=== PATIENT | male | born 1935 | race Caucasian/White ===

== ENCOUNTER 2017-03-14 00:05 | Emergency (ER) | payer OTHER, BC ==
[~2017-03-14] VITALS: Ht 170.2 cm; Wt 81.4 kg
[~2017-03-14 00:05] MED LIST: AMITRIPTYLINE H25 MG PO; ANTIBIOTIC; FLOMAX0.4 MG PO; HYDROCODON-ACE1 EAC7 PO; HYDROCODON-ACE1 EAC9 PO; HYDROCODONE-AP1 EA15 PO; KEFLEX500 MG PO; MOTRIN800 MG PO; OMNICEF50 MG/1 ML PO; OXAYDO5 MG PO; PERCOCET 5/31 TABLET PO; RAPAFLO4 MG PO; RAPAFLO8 MG PO; STOOL SOFTENER100 M1 PO; SYNTHROID125 MCG PO; SYNTHROID25 MCG PO; TOVIAZ4 MG PO; TRAZODONE HCL50 MG PO; VYTORIN 10-201 EACH PO
[2017-03-14 02:12] LABS: MCH 29.4 PG (29.0-34.0); MCHC 31.6 G/DL (30.0-36.0); MCV 92.9 FL (86-99); MEAN PLAT.VOLUME 10.6 uM^3 (9.0-12.4); PLATELET COUNT 392 K/uL (156-360); RBC DIS.WIDTH-CV 13.5 % (11.8-14.6); RBC DIS.WIDTH-SD 45.9 % (39-53); RED BLOOD COUNT 4.63 M/uL (4.00-5.50); WHITE BLOOD COUNT 7.8 K/uL (4.1-10.2)
[2017-03-14 02:20] LABS: CHLORIDE 108 mEq/L (99-109); POTASSIUM 4.2 mEq/L (3.7-5.4); SODIUM 142 mEq/L (136-147)
[2017-03-14 02:22] LABS: GLUCOSE 109 mg/dL (70-99)
[2017-03-14 02:24] LABS: ANION GAP 6 MEQ/L (2-14); TOTAL BILIRUBIN 0.5 mg/dL (0.0-1.0)
[2017-03-14 02:26] LABS: ALKALINE PHOSPHATASE 62 IU/L (3-129); GFR ESTIMATE (CALCULATED) > 59 mL/min/
[2017-03-14 02:27] LABS: UREA NITROGEN (BUN) 23 mg/dL (9-23)
[2017-03-14 02:36] LABS: ADD MIUA? NO; BILIRUBIN NEGATIVE; BLOOD NEGATIVE; COLOR YELLOW ((YELLOW)); GLUCOSE (STRIP) NEGATIVE; KETONES NEGATIVE; LEUKOCYTES NEGATIVE; NITRITE NEGATIVE; PROTEIN (STRIP) NEGATIVE; SPECIFIC GRAVITY 1.016 (1.000-1.030); UCUL ADDED? NO; UROBILINOGEN 0.2 MG/DL (0.2-1.0)
[2017-03-14 03:45] VITALS: BP 148/78
== END 2017-03-14 03:46 | disposition home or self-care (01) ==
LOC: EME 00:05 → EXP 00:05
PROVIDERS: Physician Assistant
DX: G89.29 Other chronic pain (principal); M54.9 Dorsalgia, unspecified; M62.830 Muscle spasm of back; Z87.891 Personal history of nicotine dependence
CPT/HCPCS: 71275; 80053; 81003; 85027; 99281; 99284; J3010

== ENCOUNTER 2017-05-03 20:53 | Emergency (ER) | payer OTHER, BC ==
[~2017-05-03] VITALS: Ht 170.2 cm; Wt 82.0 kg
[2017-05-03 21:43] LABS: EOSINOPHIL (%) 0.3 % (0-5); HEMATOCRIT 39.6 % (38.0-50.0); IMMATURE GRANULOCYTE (%) 0.8 % (0.0-0.7); IMMATURE GRANULOCYTE COUNT 0.1 K/uL; INSTRUMENT ABS NEUTROPHIL CT 9.8 K/uL; LYMPHOCYTE COUNT 1.1 K/uL (1.0-2.8); MCHC 32.8 G/DL (30.0-36.0); MCV 91.5 FL (86-99); MEAN PLAT.VOLUME 10.6 uM^3 (9.0-12.4); MONOCYTE (%) 6.3 % (3-12); MONOCYTE COUNT 0.8 K/uL (0-0.8); NEUTROPHIL COUNT 9.8 K/uL (1.8-6.4); PLATELET COUNT 451 K/uL (156-360); RBC DIS.WIDTH-CV 13.5 % (11.8-14.6); RBC DIS.WIDTH-SD 45.7 % (39-53); RED BLOOD COUNT 4.33 M/uL (4.00-5.50); WHITE BLOOD COUNT 11.9 K/uL (4.1-10.2)
[2017-05-03 21:59] LABS: CHLORIDE 106 mEq/L (99-109); POTASSIUM 3.8 mEq/L (3.7-5.4); SODIUM 136 mEq/L (136-147)
[2017-05-03 22:01] LABS: GLUCOSE 118 mg/dL (70-99)
[2017-05-03 22:02] LABS: ANION GAP 6 MEQ/L (2-14)
[2017-05-03 22:05] LABS: GFR ESTIMATE (CALCULATED) > 59 mL/min/
[2017-05-03 22:06] LABS: UREA NITROGEN (BUN) 22 mg/dL (9-23)
[2017-05-03 22:45] LABS: ADD MIUA? YES; BILIRUBIN NEGATIVE; BLOOD LARGE; COLOR YELLOW ((YELLOW)); GLUCOSE (STRIP) NEGATIVE; KETONES NEGATIVE; LEUKOCYTES NEGATIVE; NITRITE NEGATIVE; PROTEIN (STRIP) 30; UROBILINOGEN 0.2 MG/DL (0.2-1.0)
[2017-05-03 22:46] LABS: BACTERIA RARE /HPF; EPITHELIAL CELLS NONE SEEN /HPF; MUCUS TRACE /LPF; RED BLOOD CELLS TNTC /HPF (0-5); UCUL ADDED? NO; WHITE BLOOD CELLS 0-5 /HPF (0-5)
[2017-05-04] MEDS ORDERED: ZOFRAN4 MG PO (01:12)
[2017-05-04] MEDS ORDERED: PERCOCET 5/31 TABLET PO (01:12)
[2017-05-04] MEDS ORDERED: FLOMAX0.4 MG PO (01:12)
[2017-05-04 01:27] VITALS: BP 132/64
== END 2017-05-04 01:34 | disposition home or self-care (01) ==
LOC: EME 20:53
PROVIDERS: Emergency Medicine
DX: N13.2 Hydronephrosis with renal and ureteral calculous obstruction (principal); G43.909 Migraine, unspecified, not intractable, without status migrainosus; Z87.891 Personal history of nicotine dependence
CPT/HCPCS: 74176; 80048; 81003; 85025; 87086; 99281; 99284; J1885

== ENCOUNTER → 2017-07-16 | Outpatient (CLI) | payer MEDICARE, BC ==
[~2017-07-16] MED LIST changes: +FLEXERIL10 MG PO; +ZOFRAN4 MG PO
== END | disposition home or self-care (01) ==
LOC: CDC 10:34
DX: Z01.810 Encounter for preprocedural cardiovascular examination (principal); R00.1 Bradycardia, unspecified; I45.10 Unspecified right bundle-branch block
CPT/HCPCS: 93000

== ENCOUNTER 2017-07-18 09:04 | Emergency (ER) | payer OTHER, BC ==
[~2017-07-18] VITALS: Ht 170.2 cm; Wt 81.0 kg
[~2017-07-18 09:04] MED LIST changes: -FLEXERIL10 MG PO
[2017-07-18 10:43] LABS: EOSINOPHIL (%) 1.4 % (0-5); EOSINOPHIL COUNT 0.1 K/uL (0-0.3); IMMATURE GRANULOCYTE (%) 0.6 % (0.0-0.7); INSTRUMENT ABS NEUTROPHIL CT 4.4 K/uL; LYMPHOCYTE COUNT 1.4 K/uL (1.0-2.8); MCH 29.7 PG (29.0-34.0); MCHC 31.9 G/DL (30.0-36.0); MCV 93.1 FL (86-99); MEAN PLAT.VOLUME 10.4 uM^3 (9.0-12.4); MONOCYTE COUNT 0.6 K/uL (0-0.8); NEUTROPHIL (%) 66.8 % (45-76); NEUTROPHIL COUNT 4.4 K/uL (1.8-6.4); PLATELET COUNT 366 K/uL (156-360); RBC DIS.WIDTH-CV 13.2 % (11.8-14.6); RBC DIS.WIDTH-SD 45.1 % (39-53); RED BLOOD COUNT 4.51 M/uL (4.00-5.50); WHITE BLOOD COUNT 6.6 K/uL (4.1-10.2)
[2017-07-18 11:03] LABS: CHLORIDE 112 mEq/L (99-109); POTASSIUM 4.4 mEq/L (3.7-5.4); SODIUM 140 mEq/L (136-147)
[2017-07-18 11:06] LABS: GLUCOSE 111 mg/dL (70-99)
[2017-07-18 11:07] LABS: ANION GAP 4 MEQ/L (2-14)
[2017-07-18 11:08] LABS: TOTAL BILIRUBIN 0.4 mg/dL (0.0-1.0)
[2017-07-18 11:09] LABS: ALKALINE PHOSPHATASE 66 IU/L (3-129)
[2017-07-18 11:10] LABS: GFR ESTIMATE (CALCULATED) > 59 mL/min/
[2017-07-18 11:11] LABS: UREA NITROGEN (BUN) 18 mg/dL (9-23)
[2017-07-18 11:13] LABS: CREATINE KINASE 70 IU/L (1-294); TOTAL CK 70 IU/L (1-294)
[2017-07-18 11:27] LABS: ADD MIUA? NO; BILIRUBIN NEGATIVE; BLOOD NEGATIVE; COLOR STRAW ((YELLOW)); GLUCOSE (STRIP) NEGATIVE; KETONES NEGATIVE; LEUKOCYTES NEGATIVE; NITRITE NEGATIVE; PROTEIN (STRIP) NEGATIVE; SPECIFIC GRAVITY 1.009 (1.000-1.030); UROBILINOGEN 0.2 MG/DL (0.2-1.0)
[2017-07-18 11:42] LABS: CK-MB 2.1 ng/mL (0.0-4.9)
[2017-07-18] MEDS ORDERED: FLEXERIL10 MG PO (14:00)
[2017-07-18] MEDS ORDERED: MOTRIN800 MG PO (14:00)
[2017-07-18 14:21] VITALS: BP 164/70
== END 2017-07-18 14:22 | disposition home or self-care (01) ==
LOC: EME 09:04
PROVIDERS: Emergency Medicine
DX: M79.1 Myalgia (principal); M54.5 Low back pain; G89.29 Other chronic pain; M54.2 Cervicalgia; R00.1 Bradycardia, unspecified; Z87.442 Personal history of urinary calculi; Z87.891 Personal history of nicotine dependence
CPT/HCPCS: 71020; 80053; 81003; 82550; 82553; 83735; 85025; 93005; 99281; 99285; J1885; J7030

== ENCOUNTER 2017-12-06 03:36 | Emergency (ER) | payer OTHER, BC ==
[~2017-12-06] VITALS: Ht 170.2 cm; Wt 82.3 kg
[~2017-12-06 03:36] MED LIST changes: +FLEXERIL10 MG PO
[2017-12-06] MEDS ORDERED: BACLOFEN10 MG PO (09:23)
[2017-12-06] MEDS ORDERED: PERCOCET 5/31 TABLET PO (09:23)
[2017-12-06 09:47] VITALS: BP 157/74
== END 2017-12-06 10:09 | disposition home or self-care (01) ==
LOC: EME 03:36
DX: M54.12 Radiculopathy, cervical region (principal); M25.78 Osteophyte, vertebrae; M25.512 Pain in left shoulder; G89.29 Other chronic pain; Z87.891 Personal history of nicotine dependence
CPT/HCPCS: 72125; 99281; 99284; J2270